=== PATIENT | female | born 1950 | race Caucasian/White ===

== ENCOUNTER 2018-08-03 11:54 | Emergency (ER) | payer BC, OTHER ==
[~2018-08-03] VITALS: Ht 167.6 cm; Wt 49.9 kg
[2018-08-03 12:01] VITALS: BP 138/67
== END 2018-08-03 19:03 | disposition home or self-care (01) ==
LOC: EDBD 11:54 → EDUNIT# 11:54 → ER 12:01
DX: M25.552 Pain in left hip (principal); G89.29 Other chronic pain
CPT/HCPCS: 73700